=== PATIENT | female | born 1980 | race Caucasian/White ===

== ENCOUNTER 2017-12-19 10:06 | Emergency (ER) | payer MEDICAID ==
[~2017-12-19] VITALS: Ht 182.9 cm; Wt 121.0 kg
[2017-12-19] MEDS ORDERED: PREDNISONE 20MG TABLET PO STA (10:33)
[2017-12-19] MEDS ORDERED: IPRATROPIUM/ALBUTEROL 0.5-3(2.5)MG/3ML NEB HHN ONE ×2 (10:45→12:30)
[2017-12-19] MEDS ORDERED: AZITHROMYCIN 500 MG TABLET PO ONE (10:45)
[2017-12-19 11:08] LABS: CLARITY URINE CLEAR (CLEAR); COLOR URINE YELLOW (YELLOW); KETONES URINE NEGATIVE (NEGATIVE); LEUKOCYTE ESTERASE URINE NEGATIVE (NEGATIVE); NITRITE URINE NEGATIVE (NEGATIVE); OCCULT BLOOD URINE NEGATIVE (NEGATIVE); PROTEIN URINE NEGATIVE (NEGATIVE); SPECIFIC GRAVITY URINE 1.006 (1.005-1.030); UROBILINOGEN URINE 0.2 E.U./dL (0.2-1.0)
[2017-12-19] MEDS ORDERED: IBUPROFEN 800MG TABLET PO ONE (11:30)
[2017-12-19] MEDS ORDERED: ACETAMINOPHEN 325MG TABLET PO ONE (11:30)
[2017-12-19 12:27] VITALS: BP 121/65
== END 2017-12-19 12:59 | disposition home or self-care (01) ==
LOC: ER 10:16
DX: J45.909 Unspecified asthma, uncomplicated (principal); R07.89 Other chest pain; Z98.890 Other specified postprocedural states; Z90.710 Acquired absence of both cervix and uterus; Z87.01 Personal history of pneumonia (recurrent); Z98.84 Bariatric surgery status; Z88.2 Allergy status to sulfonamides; Z91.040 Latex allergy status; Z88.8 Allergy status to other drugs, medicaments and biological substances
CPT/HCPCS: 71045; 81003; 81025; 93005; 94640; 99285; J7512; J7620; Z7610

== ENCOUNTER 2017-12-26 17:18 | Emergency (ER) | payer MEDICAID, OTHER ==
[~2017-12-26] VITALS: Ht 182.9 cm; Wt 125.0 kg
[2017-12-26] MEDS ORDERED: ONDANSETRON HCL 4MG/2ML VIAL IV STA (18:26)
[2017-12-26] MEDS ORDERED: SODIUM CHLORIDE 0.9% 1,000 ML IV ONE ×3 (18:26→21:45)
[2017-12-26 18:58] LABS: BASOPHILS % 0.4 % (0.0-2.0); EOSINOPHILS % 0.3 % (0.0-5.0); HEMATOCRIT. 35.9 % (36.0-48.0); HEMOGLOBIN. 11.7 g/dL (12.0-16.0); LYMPHOCYTES % 14.5 % (20.0-50.0); MEAN CORPUSCULAR HEMOGLOBIN 26.5 pg (28.0-32.0); MEAN CORPUSCULAR VOLUME 81.5 fL (81.0-99.0); MEAN PLATELET VOLUME 9.5 fl (7.4-10.4); MONOCYTES % 6.4 % (2.0-8.0); NEUTROPHILS % 78.4 % (40.0-76.0); PLATELET 266 x1000/uL (130-400); RED CELL DISTRIBUTION WIDTH 16.9 % (11.6-14.6)
[2017-12-26 19:03] LABS: CHLORIDE 104 mEq/L (98-107)
[2017-12-26 19:05] LABS: PROTHROMBIN TIME 10.1 sec (9.4-11.6)
[2017-12-26 19:06] LABS: HCG SCREEN NEGATIVE
[2017-12-26 19:08] LABS: ETHANOL BLOOD < 10 mg/dL
[2017-12-26 19:12] LABS: CREATINE KINASE 122 IU/L (26-192)
[2017-12-26] MEDS ORDERED: POTASSIUM CHLORIDE 20MEQ TABLET SR PO ONE (19:30)
[2017-12-26 19:46] LABS: CLARITY URINE CLEAR (CLEAR); COLOR URINE YELLOW (YELLOW); KETONES URINE NEGATIVE (NEGATIVE); LEUKOCYTE ESTERASE URINE NEGATIVE (NEGATIVE); NITRITE URINE NEGATIVE (NEGATIVE); OCCULT BLOOD URINE NEGATIVE (NEGATIVE); PROTEIN URINE NEGATIVE (NEGATIVE); SPECIFIC GRAVITY URINE 1.007 (1.005-1.030); UROBILINOGEN URINE 0.2 E.U./dL (0.2-1.0)
[2017-12-26 20:17] LABS: *AMPHETAMINES SCREEN URINE NEGATIVE (NEGATIVE)
[2017-12-26 20:18] LABS: *BARBITURATES SCREEN URINE NEGATIVE (NEGATIVE); *BENZODIAZEPINES SCREEN URINE NEGATIVE (NEGATIVE); *COCAINE SCREEN URINE NEGATIVE (NEGATIVE); METHADONE URINE SCREEN NEGATIVE (NEGATIVE); OPIATES URINE SCREEN NEGATIVE (NEGATIVE); PHENCYCLIDINE URINE SCREEN NEGATIVE (NEGATIVE)
[2017-12-26 20:19] LABS: CANNABINOID URINE SCREEN NEGATIVE (NEGATIVE)
[2017-12-26] MEDS ORDERED: METOCLOPRAMIDE HCL 10MG/2ML VIAL IV ONE (20:30)
[2017-12-26] MEDS ORDERED: ACETAMINOPHEN 325MG TABLET PO ONE (21:30)
[2017-12-26 22:05] VITALS: BP 139/68
== END 2017-12-26 23:21 | disposition home or self-care (01) ==
LOC: ER 18:29
DX: T67.5XXA Heat exhaustion, unspecified, initial encounter (principal); E86.0 Dehydration; Z88.2 Allergy status to sulfonamides; Z91.040 Latex allergy status; Z88.8 Allergy status to other drugs, medicaments and biological substances; X58.XXXA Exposure to other specified factors, initial encounter; Y93.89 Activity, other specified; Y92.89 Other specified places as the place of occurrence of the external cause; Y99.8 Other external cause status
CPT/HCPCS: 36415; 71045; 80053; 80305; 81003; 82550; 83690; 84703; 85025; 85610; 93005; 96361; 96374; 96375; 99285; G0482; J2405; J2765; J7030; Z7610

== ENCOUNTER 2017-12-27 17:00 | Emergency (ER) | payer OTHER ==
[~2017-12-27] VITALS: Ht 182.9 cm; Wt 125.0 kg
[2017-12-27] MEDS ORDERED: KETOROLAC 60MG/2ML VIAL IM ONE (20:00)
[2017-12-27 21:45] VITALS: BP 121/69
== END 2017-12-27 21:59 | disposition home or self-care (01) ==
LOC: ER 18:40
DX: S82.65XA Nondisplaced fracture of lateral malleolus of left fibula, initial encounter for closed fracture (principal); S80.211A Abrasion, right knee, initial encounter; F31.9 Bipolar disorder, unspecified; Z98.84 Bariatric surgery status; Z90.710 Acquired absence of both cervix and uterus; Z88.2 Allergy status to sulfonamides; Z88.8 Allergy status to other drugs, medicaments and biological substances; Z91.040 Latex allergy status; W01.0XXA Fall on same level from slipping, tripping and stumbling without subsequent striking against object, initial encounter; Y93.89 Activity, other specified; Y92.488 Other paved roadways as the place of occurrence of the external cause
CPT/HCPCS: 29515; 73562; 73610; 73630; 90471; 99284; J1885; Z7610